=== PATIENT | female | born 1960 | race African-American/Black ===

== ENCOUNTER 2022-03-02 00:36 | Emergency (ER) | payer SELFPAY ==
[~2022-03-02] VITALS: Ht 172.7 cm; Wt 61.4 kg
[2022-03-02 00:36] VITALS: BP 123/69
== END 2022-03-02 02:32 | disposition left against medical advice (07) ==
LOC: EMS 00:38
DX: S21.252A Open bite of left back wall of thorax without penetration into thoracic cavity, initial encounter (principal); W54.0XXA Bitten by dog, initial encounter; Y93.89 Activity, other specified; Y92.89 Other specified places as the place of occurrence of the external cause; Y99.8 Other external cause status; Z53.21 Procedure and treatment not carried out due to patient leaving prior to being seen by health care provider